=== PATIENT | female | born 1990 | race Caucasian/White ===

== ENCOUNTER 2020-07-01 01:07 | Emergency (ER) | payer BC ==
[~2020-07-01] VITALS: Ht 162.6 cm; Wt 56.7 kg
[2020-07-01 01:13] VITALS: BP 132/71
[2020-07-01 02:00] VITALS: BP 128/70
== END 2020-07-01 02:00 ==
LOC: MED 01:07
DX: Z02.89 Encounter for other administrative examinations (principal); V98.8XXA Other specified transport accidents, initial encounter; Y93.89 Activity, other specified; Y92.89 Other specified places as the place of occurrence of the external cause; Y99.8 Other external cause status
CPT/HCPCS: 99283